=== PATIENT | male | born 1995 | race Caucasian/White ===

== ENCOUNTER 2023-12-07 12:03 | Outpatient (AMB) | payer BC, SELFPAY ==
--- NOTE | 2023-12-07 12:14 | A.OFFPC_ITS ---
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 Needs lipid/a1c ordered for work form. 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 He has not had a pcp in about 10 years. He states that he does not have any significant past medical history and has not ever needed to take any medications. He states his only thing was growing up he does have dyslexia but has overall been able to manage this. He is mostly here for a physical exam as he is recently employed at the [employer]. He denies any significant family history. No acute concerns today. Declines immunizations. [facility] Family History (Updated 12/07/23 @ 12:18 by Bree Lloyd CMA) Paternal Grandfather Diabetes Paternal Uncle Diabetes Other Substance abuse Social History Housing: House Patient Tobacco Use Status: Never used Tobacco e-Cigarette/Vaping Use: Never Used Second Hand Smoke Exposure: No service: No Current occupational status: employed Current occupation: [employer] Current occupational exposures/hazards: Yes (lead) Cognitive needs: No Hearing needs: No Vision needs: No Questionnaire PHQ-9 Over the last 2 weeks, how often have you been bothered by any of the following problems? 1. Little interest or pleasure in doing things: not at all 2. Feeling down, depressed, or hopeless: not at all 3. Trouble falling or staying asleep, or sleeping too much: not at all 4. Feeling tired or having little energy: not at all 5. Poor appetite or overeating: not at all 7. Trouble concentrating on things, such as reading the newspaper or watching television: not at all 8. Moving or speaking so slowly that other people could have noticed. Or the opposite - being so fidgety or restless that you have been moving around a lot m ore than usual: not at all 9. Thoughts that you would be better off or of hurting yourself in some way: not at all Depression Screening Interpretation: Negative Depression Screening Done: Yes 44826 - PHQ-9 Billing: Yes Source: Developed by Drs. Tyler Muller, Lizbeth Mclaughlin, Shalom Henley and colleagues, with an educational bennie from [employer]. Thrive Questionnaire I am a: Patient What is your living situation today?: I have a steady place to live Within the past 12 months, did the food you bought not last and you didn't have the money to get more?: Often true Within the past 12 months, did you worry whether your food would run out before you got money to buy more?: Often true Do you have trouble paying for medicines?: No Do you have trouble getting transportation to medical appointments?: No Do you have trouble paying your heating and electricity bill?: No Do you have trouble taking care of your child, family member or friend?: I choose not to answer this question Do you have trouble with day-to-day activities such as bathing, preparing meals, shopping, managing finances, etc.?: No Are you currently unemployed and looking for a job?: No Are you interested in more education?: No Please select the resources that you would like help with: None Currently or been in a relationship where the following occur: I choose not to answer THRIVE Score: 2 AUDIT C Alcohol Use Questionnaire (AUDIT-C) 1. How often do you have a drink containing alcohol?: 2-3 times a week 2. How many drinks containing alcohol do you have on a typical day when you are drinking?: 1 or 2 3. How often do you have six or more drinks on one occasion?: Never Total Score: 3 ROMIE-7 AMB Questionnaire ROMIE-7 Feeling nervous, anxious, or on edge: 0 = Not at all Not being able to stop or control worryin = Not at all Worrying too much about different things: 0 = Not at all Trouble relaxin = Not at all Being so restless that it is hard to sit still: 0 = Not at all Becoming easily annoyed or irritable: 0 = Not at all Feeling afraid as if something awful might happen: 0 = Not at all Total ROMIE-7 score (0-4 normal; 5-9 mild; 10-14 moderate; 15-21 severe): 0 Source: Developed by Drs. Tyler Muller, Lizbeth Mclaughlin, Shalom Henley and colleagues, with an educational bennie from [employer]. ROMIE-7 Assessment Billing ROMIE-7 Assessment Tool: ROMIE-7 Assessment 84409 Physical exam (Primary Care) Vital Signs: Last Vital Signs Temp 98.4 F 12/07/23 12:18 Pulse 71 12/07/23 12:18 BP 110/70 12/07/23 12:18 Pulse Ox 99 12/07/23 12:18 Oxygen Delivery Method Room Air 12/07/23 12:18 BMI result Body Mass Index 23.0 Tobacco/Smoking Status: Tobacco use Status Tobacco use date assessed 12/07/23 12/07/23 12:18 Patient Tobacco Use Status Never used Tobacco 12/07/23 12:18 e-Cigarette/Vaping Use Never Used 12/07/23 12:18 Depression Screening Interpretation: Negative Currently or been in a relationship where the following occur: I choose not to answer Const Orientation/consciousness: patient oriented x3 HENMT Ears: hearing grossly normal bilaterally and TM's normal bilaterally General nose exam: No nasal polyps present Face and sinus: Yes sinuses nontender Mouth: Normal oral and palatal mucosa present Eyes Pupils: Equal, round and reactive pupils present EOM: EOMs intact bilaterally Neck Neck: Yes full ROM and Yes no lymphadenopathy Thyroid: Thyroid normal Chest Chest palpation & inspection: normal inspection of the chest Resp Auscultation: clear to auscultation bilaterally Cardio Rate: regular rate Rhythm: regular rhythm Heart sounds: S1 normal heart sound present and S2 normal heart sound present Peripheral pulses: Peripheral pulses 2+ throughout GI Other: Soft, nontender Auscultation: normal bowel sounds Rectal Exam - Male: Yes deferred General: Yes no CVA tenderness Back/Spine/Pelvis Other: Nontender Back: no CVA tenderness Skin General skin exam: no rashes or lesions noted Neuro General: patient oriented x3, gait normal, CN's II-XI intact bilaterally and deep tendon reflexes 2+ bilaterally Cranial nerves: Yes Equal, round and reactive pupils present Motor exam (neuro): 5/5 motor strength present throughout Sensory Exam: double simultaneous stimulation for sensation normal Coordination: [id number] test normal and Romberg test negative Extrem General: Yes normal to inspection and Yes full ROM Psych Affect: normal affect Attitude: cooperative Thought process: Normal thought process present Thought content: Normal thought content present Insight: Good insight present (Psych) Judgement: Good judgement present (Psych) Coding Level of Care Code Est Pt Prev Care 18-39y(02097) Diagnoses Routine general medical examination at a health care facility Z00.00 Additional Codes ROMIE-7 Assessment Billing - ROMIE-7 Assessment Tool: ROMIE-7 Assessment 86957 ([id number]) Assessment & Plan Assessment & Plan (1) Routine general medical examination at a health care facility: Code(s): Z00.00 - Encounter for general adult medical examination without abnormal findings Plan: Health maintenance reviewed Labs ordered Offer flu vaccine but declines STD testing ordered as part of physical exam. Currently asymptomatic. We will follow up pending test results. Paperwork will be filled out upon completion of labs. Orders: Orders Comprehensive [place]. Panel Fast 12/07/23 - Encounter for other specified special examinations Hepatitis C Antibody 12/07/23. - Contact with and (suspected) exposure to infections with a predominantly sexual mode of transmission Syphilis Screen 12/07/23 - Contact with and (suspected) exposure to infections with a predominantly sexual mode of transmission Complete Blood Count Auto Diff 12/07/23 - Encounter for other specified special examinations Lipid Panel 12/07/23 - Encounter for other specified special examinations TSH reflex Free T4 12/07/23 - Encounter for other specified special examinations HIV Ab/Ag 12/07/23. - Contact with and (suspected) exposure to infections with a predominantly sexual mode of transmission CT NG by PCR 12/07/23 - Contact with and (suspected) exposure to infections with a predominantly sexual mode of transmission
[2023-12-07 12:18] VITALS: BP 110/70; PULSE 71; TEMP 36.9; O2SAT 99; BMI 23.0
== END 2023-12-07 15:39 | disposition home or self-care (01) ==
LOC: HO.HMCFM 12:03
PROVIDERS: Visit Provider Physician Assistant
DX: Z00.00 Encounter for general adult medical examination without abnormal findings (principal)

== ENCOUNTER → 2023-12-07 12:03 | Outpatient (BNVA) | payer OTHER, SELFPAY | PROVIDERS: Visit Provider Physician Assistant | DX: Z00.00 Encounter for general adult medical examination without abnormal findings (principal) | CPT/HCPCS: 96127 ==